=== PATIENT | male | born 1995 | race African-American/Black ===

== ENCOUNTER 2019-06-14 11:02 | Emergency (ER) | payer MEDICAID, OTHER ==
[~2019-06-14] VITALS: Ht 170.2 cm; Wt 102.1 kg
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
[2019-06-14] MEDS ORDERED: CEPH500T PO (11:53)
[2019-06-14 12:00] VITALS: BP 194/120
[2019-06-14] MEDS ORDERED: cloNIDine HCL 0.1 MG TABLET PO ONE (12:00)
== END 2019-06-14 12:10 | disposition home or self-care (01) ==
LOC: ER 11:02
DX: S61.012D Laceration without foreign body of left thumb without damage to nail, subsequent encounter (principal); L08.89 Other specified local infections of the skin and subcutaneous tissue; I10 Essential (primary) hypertension; X58.XXXD Exposure to other specified factors, subsequent encounter
CPT/HCPCS: 99283

== ENCOUNTER 2020-03-21 20:42 | Emergency (ER) | payer MEDICAID, OTHER ==
[~2020-03-21] VITALS: Ht 175.3 cm; Wt 116.0 kg
[~2020-03-21 20:42] MED LIST: CEPH500T PO
--- NOTE | 2020-03-21 21:31 | PHYS DOC ---
Past Medical History Past Medical History: Hypertension Past Surgical History: No Surgical History Smoking Status: Current Every Day Smoker Alcohol Use: None Drug Use: Marijuana General Adult EDM: Chief Complaint: CHEST PAIN HPI: HPI: Patient is a 25 year old male who presents with complaints of palpitation, without chest pain, shortness of breath, diaphoresis, nausea or vomiting. Patient reports that this started this morning and would last for a few seconds and then go away and then returned. He really denied any pain or change in exercise tolerance. In addition he denied any syncope, headache, fever, chills, cough, sweats, shortness of breath. Patient reports is not having the past. Patient reports that he has been told he has hypertension but does not take any medications at this time. Review of Systems: Review of Systems: Constitutional: Denies fever or chills. [] Eyes: Denies change in visual acuity. [] HENT: Denies nasal congestion or sore throat. [] Respiratory: Denies cough or shortness of breath. [] Cardiovascular: See HPI [] GI: Denies abdominal pain, nausea, vomiting, bloody stools or diarrhea. [] : Denies dysuria. [] Musculoskeletal: Denies back pain or joint pain. [] Integument: Denies rash. [] Neurologic: Denies headache, focal weakness or sensory changes. [] Endocrine: Denies polyuria or polydipsia. [] Lymphatic: Denies swollen glands. [] Psychiatric: Denies depression or anxiety. [] Heart Score: Risk Factors: Risk Factors: DM, Current or recent (<one month) smoker, HTN, HLP, family history of CAD, obesity. Risk Scores: Score 0 - 3: 2.5% MACE over next 6 weeks - Discharge Home Score 4 - 6: 20.3% MACE over next 6 weeks - Admit for Clinical Observation Score 7 - 10: 72.7% MACE over next 6 weeks - Early Invasive Strategies Allergies: Allergies: Allergies Coded Allergies Type Severity Reaction Last Updated Verified No Known Drug Allergies 06/14/19 No Physical Exam: PE: Constitutional: Well developed, well nourished, no acute distress, non-toxic appearance. [] HENT: Normocephalic, atraumatic, bilateral external ears normal, oropharynx moist, no oral exudates, nose normal. [] Eyes: PERRLA, EOMI, conjunctiva normal, no discharge. [] Neck: Normal range of motion, no tenderness, supple, no stridor. [] Cardiovascular:Heart rate regular rhythm, no murmur [] Lungs & Thorax: Bilateral breath sounds clear to auscultation [] Abdomen: Bowel sounds normal, soft, no tenderness, no masses, no pulsatile masses. [] Skin: Warm, dry, no erythema, no rash. [] Back: No tenderness, no CVA tenderness. [] Extremities: No tenderness, no cyanosis, no clubbing, ROM intact, no edema. [] Neurologic: Alert and oriented X 3, normal motor function, normal sensory function, no focal deficits noted. [] Psychologic: Affect normal, judgement normal, mood normal. [] Current Patient Data: Vital Signs: Vital Signs Date Time Temp Pulse Resp B/P (MAP) Pulse Ox O2 Delivery O2 Flow Rate FiO2 03/21/20 20:51 100.0 76 16 145/78 (100) 99 Room Air 100.0 EKG: EKG: Normal sinus rhythm heart rate 83 bpm, normal intervals, normal axis, normal ECG [] Radiology/Procedures: Radiology/Procedures: [] Course & Med Decision Making: Course & Med Decision Making Pertinent Labs and Imaging studies reviewed. (See chart for details) [] Dragon Disclaimer: Dragari Disclaimer: This electronic medical record was generated, in whole or in part, using a voice recognition dictation system. Departure Departure Referrals: NO PCP (PCP) Justicifation of Admission Dx: Justifications for Admission: Justification of Admission Dx: N/A JALEN KIM MD Mar 21, 2020 21:30
[2020-03-21 22:20] LABS: BASO # 0.1 x10^3/uL (0.0-0.2); BASO % 2 % (0-3); EOS # 0.1 x10^3/uL (0.0-0.7); EOS % 2 % (0-3); HEMATOCRIT 42.6 % (39.0-53.0); HEMOGLOBIN 14.2 g/dL (13.0-17.5); LYMPH # 2.1 x10^3/uL (1.0-4.8); LYMPH % 45 % (24-48); MEAN CORPUSCULAR HEMOGLOBIN 29 pg (25-35); MEAN CORPUSCULAR HGB CONC 33 g/dL (31-37); MEAN CORPUSCULAR VOLUME 87 fL (79-100); MONO # 0.5 x10^3/uL (0.0-1.1); MONO % 11 % (0-9); NEUT # 1.9 x10^3/uL (1.8-7.7); NEUT % 40 % (31-73); PLATELET COUNT 259 x10^3/uL (140-400); RED BLOOD COUNT 4.91 x10^6/uL (4.30-5.70); RED CELL DISTRIBUTION WIDTH 13.9 % (11.5-14.5); WHITE BLOOD COUNT 4.7 x10^3/uL (4.0-11.0)
[2020-03-21 22:22] LABS: CREATININE 1.2 mg/dL (0.7-1.3); GFR 90.8
[2020-03-21 22:28] LABS: ALBUMIN 3.6 g/dL (3.4-5.0); ALBUMIN/GLOBULIN RATIO 1.1 (1.0-1.7); TOTAL BILIRUBIN 0.3 mg/dL (0.2-1.0); TOTAL PROTEIN 6.9 g/dL (6.4-8.2)
[2020-03-21 22:59] VITALS: BP 173/99
--- NOTE | 2020-03-22 07:14 | EKG ---
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
== END 2020-03-21 23:05 | disposition home or self-care (01) ==
LOC: ER 20:42
DX: R00.2 Palpitations (principal); I10 Essential (primary) hypertension; F17.200 Nicotine dependence, unspecified, uncomplicated; F12.90 Cannabis use, unspecified, uncomplicated
CPT/HCPCS: 36415; 80053; 84443; 84484; 85025; 93005; 99284

== ENCOUNTER 2020-11-16 02:43 | Emergency (ER) | payer OTHER, MEDICAID ==
[~2020-11-16] VITALS: Ht 175.3 cm; Wt 118.2 kg
[2020-11-16 02:44] VITALS: BP 188/87
[2020-11-16] MEDS: HYDROcodone/APAP 5/325MG 1 TAB TABLET PO ONE (03:21)
--- NOTE | 2020-11-16 03:21 | RAD ---
History: Pain status post fall 4 views right elbow: AP lateral oblique and radial head views right elbow The visualized osseous structures appear normal. IMPRESSION: No acute findings. Two-view right forearm: AP lateral views The visualized osseous structures appear normal. IMPRESSION: No acute findings. Electronically signed by: Saravanan Finn III, MD (11/16/2020 3:18 AM) POLY
[2020-11-16] MEDS: oxyCODONE/APAP 5/325 1 TAB TABLET PO ONE (03:29)
[2020-11-16] MEDS ORDERED: OXYC1TAB15 PO (03:35)
--- NOTE | 2020-11-16 03:35 | PHYS DOC ---
Past Medical History Past Medical History: Hypertension Past Surgical History: No Surgical History Smoking Status: Current Every Day Smoker Alcohol Use: None Drug Use: Marijuana General Adult EDM: Chief Complaint: MECHANICAL FALL HPI: HPI: Patient is a 25 year old [f__sex] who presents with [] Review of Systems: Review of Systems: Constitutional: Denies fever or chills Eyes: Denies redness or eye pain HENT: Denies nasal congestion or sore throat Respiratory: Denies cough or shortness of breath Cardiovascular: Denies chest pain or palpitations GI: Denies abdominal pain, nausea, or vomiting : Denies dysuria or hematuria Musculoskeletal: Denies back pain or joint pain Integument: Denies rash or skin lesions Neurologic: Denies headache, focal weakness or sensory changes Complete systems were reviewed and found to be within normal limits, except as documented in this note. Heart Score: C/O Chest Pain: N/A Current Medications: Current Medications Medications (Trade) Dose Ordered Sig/Kenny Start Time Stop Time Status Last Admin Dose Admin Acetaminophen/ Hydrocodone Bitart (Lortab 5/325) 1 tab 1X ONCE 11/16/20 03:30 11/16/20 03:22 DC Oxycodone/ Acetaminophen (Percocet 5/325) 1 tab 1X ONCE 11/16/20 04:00 11/16/20 04:01 11/16/20 03:29 1 TAB Allergies: Allergies: Allergies Coded Allergies Type Severity Reaction Last Updated Verified No Known Drug Allergies 06/14/19 No Physical Exam: PE: Constitutional: Well developed, well nourished, no acute distress, non-toxic appearance HENT: Normocephalic, atraumatic Eyes: PERRL, EOMI, conjunctiva normal, no discharge Neck: Normal range of motion, no tenderness, supple Lungs & Thorax: No respiratory distress, equal chest rise and fall Abdomen: Soft, no tenderness Skin: Warm, dry, no erythema, no rash Back: No tenderness, no CVA tenderness Extremities: No tenderness, ROM intact, no edema Neurologic: Alert and oriented X 3, normal motor function, normal sensory function, no focal deficits noted Psychologic: Affect normal, judgment normal Current Patient Data: Vital Signs: Vital Signs Date Time Temp Pulse Resp B/P (MAP) Pulse Ox O2 Delivery O2 Flow Rate FiO2 11/16/20 03:29 20 100 11/16/20 02:44 99.5 93 188/87 (120) Room Air 99.5 EKG: EKG: [] Radiology/Procedures: Radiology/Procedures: PROCEDURE: ELBOW RIGHT 3V & FOREARM RIGHT 2V History: Pain status post fall 4 views right elbow: AP lateral oblique and radial head views right elbow The visualized osseous structures appear normal. IMPRESSION: No acute findings. Two-view right forearm: AP lateral views The visualized osseous structures appear normal. IMPRESSION: No acute findings. Electronically signed by: Balwinder Finn III, MD (11/16/2020 3:18 AM) [facility] Course & Med Decision Making: Course & Med Decision Making Pertinent Imaging studies reviewed. (See chart for details) Patient stable for discharge with outpatient follow-up with PCP/orthopedics. Orthopedic referral provided. Discussed findings and plan with patient, who acknowledges understanding and agreement. Dragon Disclaimer: Dragon Disclaimer: This electronic medical record was generated, in whole or in part, using a voice recognition dictation system. Splinting Splinting : Location: Right elbow and forearm Pre-Made Type: Jose Antonio bandage Pre-Proc Neuro Vasc Exam: normal Post-Proc Neuro Vasc Exam: normal, unchanged from pre-exam Departure Departure Impression: Primary Impression: Fall Qualified Codes: W19.XXXA - Unspecified fall, initial encounter Additional Impression: Contusion of elbow, right Qualified Codes: S50.01XA - Contusion of right elbow, initial encounter Disposition: HOME / SELF CARE / HOMELESS Condition: STABLE Referrals: NO PCP (PCP) BALWINDER CHAO MD Patient Instructions: Elastic Bandage and RICE, Elbow Contusion, [id number], Fall Prevention and Home Safety, [id number] Additional Instructions: ICE area of discomfort 20 min on then leave off next 20 mins. Repeat several times daily as needed for next few days. Scripts Oxycodone/Apap 5-325 (PERCOCET 5-325 MG TABLET ) 1 Each Tablet 0.5-1 TAB PO PRN Q6HRS PRN for PAIN, #10 TAB 0 Refills Prov: GREGORY VALDES DO 11/16/20 GREGORY VALDES DO Nov 16, 2020 03:35
== END 2020-11-16 04:04 | disposition home or self-care (01) ==
LOC: ER 02:43
DX: S50.01XA Contusion of right elbow, initial encounter (principal); M79.631 Pain in right forearm; I10 Essential (primary) hypertension; F17.200 Nicotine dependence, unspecified, uncomplicated; W18.39XA Other fall on same level, initial encounter; Y93.89 Activity, other specified; Y92.89 Other specified places as the place of occurrence of the external cause; Y99.8 Other external cause status
CPT/HCPCS: 73080; 73090; 99284; A4565

== ENCOUNTER 2020-11-20 14:29 | Emergency (ER) | payer MEDICAID, OTHER ==
[~2020-11-20] VITALS: Ht 175.3 cm; Wt 119.8 kg
[~2020-11-20 14:29] MED LIST changes: +OXYC1TAB15 PO
[2020-11-20 17:25] VITALS: BP 123/76
[2020-11-20] MEDS ORDERED: IV NORMAL SALINE 1000ML BAG 1,000 ML IV ONE (18:00)
[2020-11-20] MEDS ORDERED: ONDANSETRON PF 4 MG/2 ML VIAL. IV ONE (18:00)
[2020-11-20] MEDS ORDERED: MORPHINE SULFATE 4 MG/ML VIAL. IV ONE (18:00)
== END 2020-11-20 17:55 | disposition left against medical advice (07) ==
LOC: ER 14:29
DX: M54.5 Low back pain (principal); Z53.21 Procedure and treatment not carried out due to patient leaving prior to being seen by health care provider

== ENCOUNTER 2021-01-07 19:45 | Emergency (ER) | payer MEDICAID, OTHER ==
[~2021-01-07] VITALS: Ht 175.3 cm; Wt 115.0 kg
[2021-01-07] MEDS ORDERED: fentaNYL PF VIAL 100 MCG/2 ML VIAL IM ONE (21:30)
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
[2021-01-07] MEDS ORDERED: IV NORMAL SALINE 1000ML BAG 1,000 ML IV ONE (23:00)
[2021-01-07] MEDS ORDERED: fentaNYL PF VIAL 100 MCG/2 ML VIAL IV ONE (23:00)
[2021-01-07 23:30] VITALS: BP 158/74
[2021-01-07] MEDS ORDERED: FLUORESCEIN OPHTH TEST STRIP. OD ONE (23:30)
[2021-01-07] MEDS ORDERED: TETRACAINE 0.5% OPHTH SOLUTION 4ML BOTTLE. OD ONE (23:30)
--- NOTE | 2021-01-08 00:20 | EKG ---
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
== END 2021-01-07 23:30 | disposition short-term general hospital (02) ==
LOC: ER 19:45
DX: S02.31XA Fracture of orbital floor, right side, initial encounter for closed fracture (principal); I10 Essential (primary) hypertension; F17.200 Nicotine dependence, unspecified, uncomplicated; Y08.89XA Assault by other specified means, initial encounter; Y93.89 Activity, other specified; Y92.89 Other specified places as the place of occurrence of the external cause; Y99.8 Other external cause status
CPT/HCPCS: 70450; 70480; 93005; 99285-25

== ENCOUNTER 2021-07-02 19:32 | Emergency (ER) | payer SELFPAY ==
[~2021-07-02] VITALS: Ht 175.3 cm; Wt 114.0 kg
[2021-07-02 19:32] VITALS: BP 172/108
--- NOTE | 2021-07-02 19:44 | PHYS DOC ---
Past Medical History Past Medical History: Hypertension (CHRISTINA AUGUSTE RAILROAD ENGINEER) Past Surgical History: No Surgical History (CHRISTINA AUGUSTE RAILROAD ENGINEER) Smoking Status: Current Every Day Smoker Alcohol Use: None Drug Use: Marijuana (CHRISTINA AUGUSTE RAILROAD ENGINEER) General Adult EDM: Chief Complaint: HAND PROBLEM HPI: HPI: Patient is a 26 year old male who presents with was cutting take with sharp surgical type scissors and accidentally stabbed himself in the right palm hand just distal to the elbow. He states he is having numbness and tingling in the right thumb and to the tips of his index and middle finger. There is 2-3+ swelling. He states that he does have range of motion of his fingers and his thumb but it is too painful to move. His pain 10 out of 10 throbbing. (CHRISTINA AUGUSTE RAILROAD ENGINEER) Review of Systems: Review of Systems: Constitutional: Denies fever or chills. [] Eyes: Denies change in visual acuity. [] HENT: Denies nasal congestion or sore throat. [] Respiratory: Denies cough or shortness of breath. [] Cardiovascular: Denies chest pain or +right hand edema. [] GI: Denies abdominal pain, nausea, vomiting, bloody stools or diarrhea. [] : Denies dysuria. [] Musculoskeletal: Denies back pain or joint pain. +right hand pain[] Integument: Denies rash. +right hand 1cm puncture wound[] Neurologic: Denies headache, focal weakness or sensory changes. [] Endocrine: Denies polyuria or polydipsia. [] Lymphatic: Denies swollen glands. [] Psychiatric: Denies depression or anxiety. [] (CHRISTINA AUGUSTE M RAILROAD ENGINEER) Heart Score: C/O Chest Pain: No (CHRISTINA AUGUSTE RAILROAD ENGINEER) Allergies: Allergies: Allergies Coded Allergies Type Severity Reaction Last Updated Verified No Known Drug Allergies 06/14/19 No (CHRISTINA AUGUSTE RAILROAD ENGINEER) Physical Exam: PE: Constitutional: Well developed, well nourished, no acute distress, non-toxic appearance. [] HENT: Normocephalic, atraumatic, bilateral external ears normal, oropharynx moist, no oral exudates, nose normal. [] Eyes: PERRLA, EOMI, conjunctiva normal, no discharge. [] Neck: Normal range of motion, no tenderness, supple, no stridor. [] Cardiovascular:Heart rate regular rhythm, no murmur [] Lungs & Thorax: Bilateral breath sounds clear to auscultation [] Abdomen: Bowel sounds normal, soft, no tenderness, no masses, no pulsatile masses. [] Skin: Warm, dry, no erythema, no rash. Right palm of hand distal to thumb 1cm puncture wound [] Back: No tenderness, no CVA tenderness. [] Extremities: Right palm of hand tenderness, no cyanosis, no clubbing, ROM intact but painful with movement, 2+ edema. [] Neurologic: Alert and oriented X 3, normal motor function, normal sensory function, no focal deficits noted. Numbness to thumb [] Psychologic: Affect normal, judgement normal, mood normal. [] (CHRISTINA AUGUSTE APRN) EKG: EKG: [] (CHRISTINA AUGUSTE APRN) Radiology/Procedures: Radiology/Procedures: [] Impression: [facility] [address] [facility] [place] [address] IMAGING REPORT Signed PATIENT: JACKELINE GONZALES ACCOUNT: [id number] : 1995 LOCATION: ER AGE: 26 SEX: M EXAM STATUS: REG ER ORD. PHYSICIAN: CHRISTINA AUGUSTE APRN REASON: puncture wound to palmm of hand distal to thumb PROCEDURE: HAND RIGHT 3V Exam: Right hand 3 views INDICATION: Puncture wound to palm of the hand distal to the thumb TECHNIQUE: Frontal, lateral oblique views of the right hand Comparisons: None FINDINGS: Small amount of soft tissue gas noted at the thenar eminence. No radiopaque foreign body. Bone mineralization is normal. No acute or healed fractures. Joint spaces are well-maintained. IMPRESSION: Soft tissue gas at the thenar eminence without underlying osseous abnormality or radiopaque foreign body identified. Electronically signed by: Sissy Woody MD (07/02/2021 9:22 PM) [facility] DICTATED and SIGNED BY: SISSY WOODY MD DATE: 07/02/[id number] 0 (CHRISTINA AUGUSTE APRN) Course & Med Decision Making: Course & Med Decision Making Pertinent Labs and Imaging studies reviewed. (See chart for details) See HPI. Radial pulse strong present. Cap refill less than 2 seconds. Right palm of hand distal to the thumb and thumb and index finger are 2+ swollen. He does have range of motion of his fingers but he states it hurts to back to move them. He is able to wiggle his fingers and his thumb. He states his tetanus is less than 5 years old. Patient was not wearing a glove when the puncture happened. Patient x-ray read by Dr. Brand as no obvious acute findings. Patient will be placed on pain medication and antibiotic. Wound cleansed with saline and chlorhexidine. Wound is dressed by RN. [] (CHRISTINA AUGUSTE APRN) Course & Med Decision Making Patients Care and treatment plan provided by ER Nurse Practitioner. I was rema still for consult. Patient's chart reviewed. (NANDINI BRAND I DO) Dragon Disclaimer: Dragon Disclaimer: This electronic medical record was generated, in whole or in part, using a voice recognition dictation system. (CHRISTINA AUGUSTE APRN) Departure Departure Impression: Primary Impression: Puncture wound, hand Qualified Codes: S61.431A - Puncture wound without foreign body of right hand, initial encounter Disposition: HOME / SELF CARE / HOMELESS Condition: STABLE Referrals: NO PCP (PCP) ENRIQUETA DENISE DO Patient Instructions: Puncture Wound Additional Instructions: Follow-up with Dr. Denise orthopedic in the next week. Take antibiotic as prescribed and with food. Take pain medication as prescribed and with food. Remember this medication can make you sleepy so do not drive, work or operate heavy machinery while taking pain medication. If your hand becomes very swollen and you cannot make a fist or the pain increases, redness or starts draining return to the emergency room. Scripts Tramadol Hcl (TRAMADOL HCL) 50 Mg Tablet 50 MG PO Q6HRS PRN for PAIN, #10 TAB Prov: CHRISTINA AUGUSTE APRN 07/02/21 Cephalexin (KEFLEX) 500 Mg Capsule 1 CAP PO QID, #40 CAP Prov: CHRISTINA AUGUSTE APRN 07/02/21 CHRISTINA AUGUSTE APRN Jul 02, 2021 19:44 NANDINI BRAND DO Jul 04, 2021 01:31
[2021-07-02] MEDS ORDERED: HYDROcodone/APAP 5/325MG 1 TAB TABLET PO ONE (20:00)
[2021-07-02] MEDS ORDERED: traMADol 50 MG TABLET PO ONE (20:15)
--- NOTE | 2021-07-02 21:25 | RAD ---
Exam: Right hand 3 views INDICATION: Puncture wound to palm of the hand distal to the thumb TECHNIQUE: Frontal, lateral oblique views of the right hand Comparisons: None FINDINGS: Small amount of soft tissue gas noted at the thenar eminence. No radiopaque foreign body. Bone minera lization is normal. No acute or healed fractures. Joint spaces are well-maintained. IMPRESSION: Soft tissue gas at the thenar eminence without underlying osseous abnormality or radiopaque foreign b darrell identified. Electronically signed by: Sissy Talavera MD (07/02/2021 9:22 PM) [facility]
[2021-07-02] MEDS ORDERED: HYDR-2761 PO (21:31)
[2021-07-02] MEDS ORDERED: CEPH500C PO (21:31)
[2021-07-02] MEDS ORDERED: TRAM50TA PO (21:37)
== END 2021-07-02 21:45 | disposition home or self-care (01) ==
LOC: ER 19:32
DX: S61.431A Puncture wound without foreign body of right hand, initial encounter (principal); I10 Essential (primary) hypertension; F17.200 Nicotine dependence, unspecified, uncomplicated; X58.XXXA Exposure to other specified factors, initial encounter; Y93.89 Activity, other specified; Y92.89 Other specified places as the place of occurrence of the external cause; Y99.8 Other external cause status
CPT/HCPCS: 73130; 99283